=== PATIENT | male | born 1965 | race Caucasian/White ===

== ENCOUNTER → 2018-10-28 | Emergency (ER) | payer MEDICAID | END | disposition left against medical advice (07) | LOC: ER 20:31 | DX: M79.673 Pain in unspecified foot (principal); Z53.21 Procedure and treatment not carried out due to patient leaving prior to being seen by health care provider ==

== ENCOUNTER 2018-10-29 07:31 | Inpatient (IN) | payer MEDICAID ==
[~2018-10-29] VITALS: Ht 188 cm; Wt 83.0 kg
[2018-10-29] MEDS ORDERED: CLINDAMYCIN 900MG IV 50 ML IV ONE (08:45)
[2018-10-29] MEDS ORDERED: cefTRIAXone 1GM/50ML D5W 50 ML IV ONE (08:45)
[2018-10-29 08:52] LABS: Basophils # (auto) 0.1 uL; Basophils % (auto) 1.2 % (0.0-2.0); Eosinophils # (auto) 0.3 uL; Eosinophils % (auto) 3.9 % (0.0-7.0); Hematocrit 41.8 % (41.0-53.0); Hemoglobin 14.4 g/dL (13.5-17.5); Lymphocytes # (auto) 1.5 uL; Lymphocytes % (auto) 23.3 % (10.0-50.0); Mean Corpuscular Hemoglobin 33.5 pg (28.0-32.0); Mean Corpuscular Hgb Conc. 34.4 g/dL (32.0-36.0); Mean Corpuscular Volume 97.3 fL (80.0-100.0); Monocytes # (auto) 0.8 uL; Monocytes % (auto) 12.6 % (0.0-12.0); Neutrophils # (auto) 3.9 uL; Nucleated Red Blood Cells % 0.2 %; Platelet Count (auto) 166 10^3/uL (140-450); Red Cell Distribution Width 14.3 % (11.8-14.3); White Blood Cell 6.5 10^3/uL (4.4-10.8)
[2018-10-29] MEDS ORDERED: ONDANSETRON HCL 4 MG/2 ML VIAL IV ONE (09:00)
[2018-10-29] MEDS ORDERED: MORPHINE SULFATE 4 MG/ML SYR/VIAL IV ONE (09:00)
[2018-10-29 09:12] LABS: Albumin 3.2 g/dL (3.4-5.0); BUN/Creatinine Ratio 17.1; Calcium 8.8 mg/dL (8.5-10.1); Potassium 4.5 mmol/L (3.5-5.1)
[2018-10-29 09:14] LABS: Bilirubin, Total 0.5 mg/dL (0.2-1.0); Total Protein 7.7 g/dL (6.4-8.2)
[2018-10-29 09:19] LABS: Urine Bacteria NONE SEEN /hpf (None Seen); Urine Blood Negative /uL (Negative); Urine Specific Gravity 1.016 (1.001-1.035); Urine WBC 2 /hpf (0 - 3)
[2018-10-29 09:43] LABS: Alcohol, Urine < 3.0 mg/dL (0-5); Amphetamine Screen, Urine NEGATIVE (NEGATIVE); Barbiturate Scree,Urine NEGATIVE (NEGATIVE); Benzodiazephine Screen, Urine NEGATIVE (NEGATIVE); Cannabinoid Screen, Urine NEGATIVE (NEGATIVE); Cocaine Screen, Urine NEGATIVE (NEGATIVE); Opiate Scree,Urine NEGATIVE (NEGATIVE)
[2018-10-29 09:57] LABS: Phencyclidine Screen, Urine NEGATIVE (NEGATIVE)
[2018-10-29] MEDS ORDERED: NITROGLYCERIN 0.4 MG SL TAB SL PRN (10:45)
[2018-10-29] MEDS ORDERED: MORPHINE SULF INJ 2 MG/ML SYRINGE 1ML IV PRN (10:45)
[2018-10-29] MEDS ORDERED: HYDROmorphone HCL 2 MG/ML VL IV ONE (11:00)
[2018-10-29] MEDS: FLORASTOR (S. BOULARDII) 250 MG CAP PO SCH (11:20)
[2018-10-29] MEDS: SODIUM CHLORIDE 0.9% 1,000 ML IV SCH (11:20)
--- NOTE | 2018-10-29 12:15 | NUR ---
MS admit from ER DU,WILEY arrived from ER, states he want to leave the floor Against Medical Advice (AMA) to go outside and smoke. Patient encouraged to stay on floor and not smoke. Ana Dorsey notified of patient's wishes. Patient advised of the risks and benefits of leaving AMA. Patient verbalized understanding and signed required AMA form.
[2018-10-29 12:25] VITALS: BP 107/57
--- NOTE | 2018-10-29 14:59 | NUR ---
wound photos taken of left foot right hand. MRSA swab sent of nares per protocol.
[2018-10-29 17:18] VITALS: BP 118/64
[2018-10-29] MEDS: CLINDAMYCIN 300MG IV 50 ML IV SCH (17:54)
[2018-10-29] MEDS: HYDROcodone-ACET 7.5/325MG TAB PO PRN (18:24)
--- NOTE | 2018-10-29 19:12 | NUR ---
Care endorsed to KAMALJIT Zuñiga, night nurse.
--- NOTE | 2018-10-29 19:13 | NUR ---
Care endorsed to KAMALJIT Cobb, night nurse.
[2018-10-29] MEDS: ONDANSETRON HCL 4 MG/2 ML VIAL IV PRN (20:05)
[2018-10-29] MEDS: MORPHINE SULF INJ 2 MG/ML SYRINGE 1ML IV PRN (20:06)
[2018-10-29 22:00] VITALS: BP 134/66
[2018-10-30] MEDS: HYDROcodone-ACET 7.5/325MG TAB PO PRN ×4 (00:27→19:39)
[2018-10-30] MEDS: SODIUM CHLORIDE 0.9% 1,000 ML IV SCH ×3 (00:29→13:25)
[2018-10-30] MEDS: MORPHINE SULF INJ 2 MG/ML SYRINGE 1ML IV PRN ×5 (02:04→21:17)
[2018-10-30] MEDS: CLINDAMYCIN 300MG IV 50 ML IV SCH ×3 (02:04→17:41)
[2018-10-30 05:00] VITALS: BP 122/57
[2018-10-30 08:29] VITALS: BP 131/63
[2018-10-30] MEDS: cefTRIAXone 1GM/50ML D5W 50 ML IV SCH (09:29)
[2018-10-30] MEDS: FLORASTOR (S. BOULARDII) 250 MG CAP PO SCH (09:30)
[2018-10-30] MEDS: ONDANSETRON HCL 4 MG/2 ML VIAL IV PRN ×3 (09:30→21:13)
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
--- NOTE | 2018-10-30 12:00 | NUR ---
Nutrition consult/Assessment Notes please see attached link for complete assessment Est. Needs BW (85 kg): 6092-4875 kcal (25-30 kcal/kgBW), 85-102 gms pro (1.0-1.2 gms/kgBW). Will continue to monitor pertinent labs and reassess nutrient need prn Addendum: 10/30/18 at [address] Amended: Links added.
[2018-10-30 13:00] VITALS: BP 109/65
[2018-10-30 16:22] VITALS: BP 116/57
--- NOTE | 2018-10-30 17:48 | NUR ---
CONSULT WITH DR. BRADLEY RECALLED BY ELIANA MANAGER WELDING
--- NOTE | 2018-10-30 18:51 | NUR ---
PATIENT STATES HE DOES NOT TAKE ANY MEDICATIONS AT ALL AT HOME. HE ONLY HAS MEDICATIONS HE WAS PRESCRIBED FROM [facility] FOR HIS FOOT, BEFORE THE INJURY, NO MEDICATIONS WERE EVER TAKEN.
--- NOTE | 2018-10-30 18:52 | NUR ---
PATIENT OFF UNIT TO SMOKE
--- NOTE | 2018-10-30 18:56 | NUR ---
REPORT GIVEN TO ANTONIO NICOLE RN. ANTONIO AWARE PATIENT IS OFF UNIT. ENDORSED CARE.
[2018-10-30 21:56] VITALS: BP 119/64
[2018-10-31] MEDS: HYDROcodone-ACET 7.5/325MG TAB PO PRN ×4 (01:22→22:08)
[2018-10-31] MEDS: CLINDAMYCIN 300MG IV 50 ML IV SCH ×3 (02:17→17:48)
--- NOTE | 2018-10-31 02:30 | NUR ---
WILEY PRESLEY states they want to leave the floor Against Medical Advice (AMA) to go outside and smoke. Patient encouraged to stay on floor and not smoke. Dr Bateman notified of patient's wishes. Patient advised of the risks and benefits of leaving AMA. Patient verbalized understanding and signed required AMA form. Patient left 0230 off the floor via wheel chair to go smoke, awaiting patient to return back to room.
[2018-10-31] MEDS: MORPHINE SULF INJ 2 MG/ML SYRINGE 1ML IV PRN ×3 (03:41→18:11)
[2018-10-31 05:00] VITALS: BP 107/59
--- NOTE | 2018-10-31 05:00 | NUR ---
WILEY PRESLEY states they want to leave the floor Against Medical Advice (AMA) to go outside and smoke. Patient encouraged to stay on floor and not smoke. Dr notified of patient's wishes. Patient advised of the risks and benefits of leaving AMA. Patient verbalized understanding and signed required AMA form. Awaiting patient return back to room.
[2018-10-31] MEDS: SODIUM CHLORIDE 0.9% 1,000 ML IV SCH ×2 (05:11→21:10)
[2018-10-31 05:30] LABS: Basophils # (auto) 0.1 uL; Basophils % (auto) 1.5 % (0.0-2.0); Eosinophils # (auto) 0.4 uL; Eosinophils % (auto) 6.1 % (0.0-7.0); Hematocrit 39.8 % (41.0-53.0); Hemoglobin 13.5 g/dL (13.5-17.5); Lymphocytes # (auto) 1.7 uL; Lymphocytes % (auto) 28.6 % (10.0-50.0); Mean Corpuscular Hemoglobin 33.2 pg (28.0-32.0); Mean Corpuscular Volume 97.6 fL (80.0-100.0); Monocytes # (auto) 0.9 uL; Monocytes % (auto) 14.8 % (0.0-12.0); Neutrophils # (auto) 2.9 uL; Nucleated Red Blood Cells % 0.1 %; Platelet Count (auto) 166 10^3/uL (140-450); Red Blood Cells 4.08 10^6/uL (4.5-5.90); Red Cell Distribution Width 14.1 % (11.8-14.3); White Blood Cell 5.8 10^3/uL (4.4-10.8)
[2018-10-31 05:58] LABS: Magnesium 2.1 mg/dL (1.6-2.6)
[2018-10-31 06:05] LABS: Albumin 2.9 g/dL (3.4-5.0); BUN/Creatinine Ratio 15.9; Bilirubin, Total 0.5 mg/dL (0.2-1.0); Calcium 8.7 mg/dL (8.5-10.1); Total Protein 7.4 g/dL (6.4-8.2)
[2018-10-31 06:26] LABS: Potassium 4.5 mmol/L (3.5-5.1)
--- NOTE | 2018-10-31 08:00 | NUR ---
Opening Shift Note Assumed care of patient, awake and alert. No S/S of distress/SOB or pain. Instructed on POC and to call for assist PRN, will continue to monitor for changes Q1hr and PRN.
[2018-10-31] MEDS: cefTRIAXone 1GM/50ML D5W 50 ML IV SCH (09:24)
[2018-10-31] MEDS: FLORASTOR (S. BOULARDII) 250 MG CAP PO SCH (09:25)
[2018-10-31 09:40] LABS: Hepatitis B Surface Antibody Positive
[2018-10-31 10:11] LABS: Hepatitis A Total Antibody Positive
[2018-10-31 10:51] LABS: Hepatitis B Surface Antigen Negative (Negative)
[2018-10-31 10:55] LABS: Hepatitis B Core Total AB Positive; Hepatitis C Antibody Positive (Negative)
[2018-10-31 13:00] VITALS: BP_SYST 115; BP_SYST 139; BP_DIAS 66; BP_DIAS 99
[2018-10-31] MEDS ORDERED: NICOTINE 21MG/24 HR TOPICAL PATCH TD ONE (16:15)
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
[2018-10-31 17:20] VITALS: BP 108/66
[2018-10-31 23:18] VITALS: BP 118/61
[2018-11-01] MEDS: MORPHINE SULF INJ 2 MG/ML SYRINGE 1ML IV PRN ×3 (00:07→12:14)
[2018-11-01] MEDS: CLINDAMYCIN 300MG IV 50 ML IV SCH ×2 (02:00→09:56)
[2018-11-01] MEDS: HYDROcodone-ACET 7.5/325MG TAB PO PRN ×2 (04:37→11:00)
[2018-11-01 05:09] VITALS: BP 112/65
[2018-11-01 06:29] LABS: Bilirubin, Direct 0.2 mg/dL (0-0.2)
[2018-11-01 06:31] LABS: Bilirubin, Total 0.5 mg/dL (0.2-1.0); Total Protein 7.6 g/dL (6.4-8.2)
--- NOTE | 2018-11-01 08:00 | NUR ---
Opening Shift Note Assumed care of patient, awake and alert. No S/S of distress/SOB. Will give pain medication when it is due again, too early at this time. Waiting for splint, spoke with Douglas in Ortho. He will be bringing it for the patient. Instructed on POC and to call for assist PRN, will continue to monitor for changes Q1hr and PRN.
[2018-11-01 08:30] VITALS: BP 110/67
--- NOTE | 2018-11-01 08:52 | NUR ---
PATIENT IS INDEPENDENT IN ACTIVITIES WITH CRUTCHES. AWAITING CAST FOR LEG.
[2018-11-01] MEDS: cefTRIAXone 1GM/50ML D5W 50 ML IV SCH (09:19)
[2018-11-01] MEDS: FLORASTOR (S. BOULARDII) 250 MG CAP PO SCH (09:57)
[2018-11-01] MEDS ORDERED: NICOTINE 21MG/24 HR TOPICAL PATCH TD SCH (10:00)
[2018-11-01 12:30] VITALS: BP 128/72
--- NOTE | 2018-11-01 13:54 | NUR ---
D/C planning Per consult for a Wheelchair. Contacted and faxed medical records to [facility] Ph: ) Fax: ( [phone]). Per Marya from [employer] Wheel Chair has been approved by insurance and will be deliver today at bed side. Marya did not give me a time frame for drop off. Informed KAMALJIT Macario. Addendum: 11/01/18 at 1401 by MORIAH TUCKER Amended: Links added.
[2018-11-01] MEDS ORDERED: LEVO500T21 PO (14:03)
[2018-11-01] MEDS ORDERED: SACC250C PO (14:03)
[2018-11-01] MEDS ORDERED: CLIN300C8 PO (14:03)
[2018-11-01] MEDS: SODIUM CHLORIDE 0.9% 1,000 ML IV SCH (14:14)
--- NOTE | 2018-11-01 15:03 | NUR ---
DISCHARGE INSTRUCTIONS EXIT CARE REFERENCE INFO DUE TO THE FACT THAT THEY DID NOT HAVE ANY INFORMATION REGARDING A FRACTURE OF THE FOOT OR CALCANEUS OR TALUS. THERE WAS ALSO NO INFORMATION REGARDING INJURY OR ANYTHING ELSE CLOSE TO THE DIAGNOSIS.
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
== END 2018-11-01 18:05 | disposition home or self-care (01) | DRG 342 ==
LOC: ER 07:31 → OVERFLOW 07:32 → WEST WING 11:55
PROVIDERS: ADMIT Nurse Practitioner Acute Care; ATTEND Internal Medicine
DX: S92.002A Unspecified fracture of left calcaneus, initial encounter for closed fracture (principal); L03.116 Cellulitis of left lower limb; K76.0 Fatty (change of) liver, not elsewhere classified; S92.102A Unspecified fracture of left talus, initial encounter for closed fracture; F17.210 Nicotine dependence, cigarettes, uncomplicated; F19.10 Other psychoactive substance abuse, uncomplicated; F10.10 Alcohol abuse, uncomplicated; Z71.6 Tobacco abuse counseling; Z71.51 Drug abuse counseling and surveillance of drug abuser; V09.9XXA Pedestrian injured in unspecified transport accident, initial encounter; Y93.89 Activity, other specified; Y92.89 Other specified places as the place of occurrence of the external cause; Y99.8 Other external cause status; B19.20 Unspecified viral hepatitis C without hepatic coma
CPT/HCPCS: 36415; 73630; 73700; 76705; 80053; 80061; 80076; 80307; 81001; 83605; 83735; 85025; 86704; 86706; 86708; 86803; 87040; 87081; 87340; 93926; 96365; 96366; 96367; 96375; G0378; J0696; J2405; J3490